=== PATIENT | male | born 1980 | race Two or more races ===

== ENCOUNTER 2017-07-19 14:23 | Emergency (ER) | payer MEDICAID ==
[~2017-07-19] VITALS: Ht 165.1 cm; Wt 56.7 kg
[2017-07-19] MEDS ORDERED: ONDANSETRON HCL/PF 4 MG/2 ML VIAL IVP ONE (15:00)
[2017-07-19] MEDS ORDERED: HYDROMORPHONE INJ 2 MG/ML DISP.SYRIN IV ONE (15:00)
[2017-07-19] MEDS ORDERED: IV NS 0.9% 1,000 ML BAG IV ONE (15:00)
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
[2017-07-19] MEDS ORDERED: ONDANSETRON HCL/PF 4 MG/2 ML VIAL ONE (15:08)
[2017-07-19] MEDS ORDERED: HYDROMORPHONE INJ 2 MG/ML DISP.SYRIN ONE (15:09)
[2017-07-19 15:21] LABS: BASOPHILS # (AUTO) 0.1 /CMM (0.0-0.2); BASOPHILS % (AUTO) 0.9 % (0.0-2.0); EOSINOPHILS # (AUTO) 0.1 /CMM (0.0-0.7); EOSINOPHILS % (AUTO) 1.9 % (0.0-6.0); HEMATOCRIT 48 % (39-51); HEMOGLOBIN 16.6 g/dL (13.5-17.5); LYMPHOCYTES # (AUTO) 2.2 /CMM (0.8-4.8); LYMPHOCYTES % (AUTO) 30.3 % (20.0-44.0); MEAN CORPUSCULAR HEMOGLOBIN 34 PG (26.0-33.0); MEAN CORPUSCULAR HGB CONC 34 g/dl (31.0-36.0); MEAN CORPUSCULAR VOLUME 99 fL (80-96); MONOCYTES # (AUTO) 0.3 /CMM (0.1-1.30); MONOCYTES % (AUTO) 4.3 % (2.0-12.0); NEUTROPHILS # (AUTO) 4.6 /CMM (1.8-8.9); NEUTROPHILS % (AUTO) 62.6 % (43.0-81.0); PLATELET COUNT (AUTO) 263 /CMM (150-450); RED BLOOD CELL COUNT(AUTO) 4.88 MIL/uL (4.5-6.0); WHITE BLOOD COUNT (AUTO) 7.3 K/uL (4.3-11.0)
--- NOTE | 2017-07-19 15:26 | NUR ---
IV ACCESS STARTED. BLOOD DRAWN FOR LABS. MEDICATED ORDERED.
[2017-07-19 15:34] LABS: ALBUMIN 4.2 g/dL (3.4-5.0); BILIRUBIN,DIRECT 0.1 mg/dL (0.0-0.2); BILIRUBIN,TOTAL 0.5 mg/dL (0.2-1.0); CALCIUM, SERUM 9.5 mg/dL (8.5-10.1); CREATININE 0.8 mg/dL (0.6-1.3); TOTAL PROTEIN, SERUM 7.7 g/dL (6.4-8.2)
[2017-07-19] MEDS ORDERED: IOHEXOL-300 100 ML VIAL IV ONE (15:39)
[2017-07-19] MEDS ORDERED: IV NS 0.9% 250 ML IV ONE (15:39)
--- NOTE | 2017-07-19 15:50 | NUR ---
PT TAKEN TO CT.
--- NOTE | 2017-07-19 17:15 | NUR ---
IV removed. Catheter intact and site benign. Pressure and 4x4 applied to site. No bleeding noted.
--- NOTE | 2017-07-19 17:20 | NUR ---
Patient discharged to home in stable condition. Written and verbal after care instructions given. Patient verbalizes understanding of instruction.
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
--- NOTE | 2017-07-19 17:41 | NUR ---
BARREL BUNG REMOVER AND DUMPER TO PUT FINGER SPLINT ON PT.
[2017-07-19 17:47] VITALS: BP 132/75
--- NOTE | 2017-07-19 17:48 | NUR ---
WAITING FOR CENTRAL SUPPLY TO DELIVER [facility].
== END 2017-07-19 18:14 | disposition home or self-care (01) ==
LOC: EDBD 14:24 → ER 14:24
DX: S62.616A Displaced fracture of proximal phalanx of right little finger, initial encounter for closed fracture (principal); S27.321A Contusion of lung, unilateral, initial encounter; N40.0 Benign prostatic hyperplasia without lower urinary tract symptoms; K75.81 Nonalcoholic steatohepatitis (NASH); M20.011 Mallet finger of right finger(s); V43.52XA Car driver injured in collision with other type car in traffic accident, initial encounter; Y93.89 Activity, other specified; Y92.413 State road as the place of occurrence of the external cause; Y99.8 Other external cause status
CPT/HCPCS: 29130; 36415; 71260; 73130; 74160; 80048; 80076; 85025; 96361; 96374; 96375; 99285; A4606; J1170; J2405; J7030; J7050; Q9967; Z7610